=== PATIENT | male | born 1960 | race Two or more races ===

== ENCOUNTER 2018-11-19 19:54 | Emergency (ER) | payer BC, SELFPAY ==
[~2018-11-19] VITALS: Ht 182.9 cm; Wt 86.0 kg
[2018-11-19 21:46] LABS: EOSINOPHILS % 2.1 % (0.0-5.0); HEMATOCRIT. 43.9 % (42.0-52.0); HEMOGLOBIN. 14.7 g/dL (14.0-18.0); LYMPHOCYTES % 24.8 % (20.0-50.0); MEAN CORPUSCULAR HEMOGLOBIN 30.9 pg (28.0-32.0); MEAN CORPUSCULAR VOLUME 91.9 fL (80.0-94.0); MEAN PLATELET VOLUME 6.9 fl (7.4-10.4); MONOCYTES % 10.2 % (2.0-8.0); NEUTROPHILS % 61.9 % (40.0-76.0); PLATELET 254 x1000/uL (130-400); RED BLOOD CELL COUNT 4.78 mill/uL (4.7-6.1); RED CELL DISTRIBUTION WIDTH 13.4 % (11.6-14.6)
[2018-11-19 21:52] LABS: CHLORIDE 104 mEq/L (98-107)
[2018-11-19] MEDS ORDERED: SODIUM CHLORIDE 0.9% 1,000 ML IV ONE (21:55)
[2018-11-19 21:57] LABS: ETHANOL BLOOD < 10 mg/dL
[2018-11-19] MEDS ORDERED: TETANUS, DIPHTHERIA, PERTUSSIS VAC/PF 0.5ML (>7YR OLD) IM ONE (22:00)
[2018-11-19 22:14] LABS: *AMPHETAMINES SCREEN URINE NEGATIVE (NEGATIVE); *BARBITURATES SCREEN URINE NEGATIVE (NEGATIVE); *BENZODIAZEPINES SCREEN URINE NEGATIVE (NEGATIVE); *COCAINE SCREEN URINE NEGATIVE (NEGATIVE); METHADONE URINE SCREEN NEGATIVE (NEGATIVE); OPIATES URINE SCREEN PRESUMTIVE POSITIVE (NEGATIVE)
[2018-11-19 22:15] LABS: CANNABINOID URINE SCREEN NEGATIVE (NEGATIVE); PHENCYCLIDINE URINE SCREEN NEGATIVE (NEGATIVE)
[2018-11-19] MEDS ORDERED: NALOXONE HCL 0.4 MG/ML 1ML VIAL IV ONE (23:15)
[2018-11-19] MEDS ORDERED: IOHEXOL-300 100 ML BOTTLE ONE (23:43)
[2018-11-19] MEDS ORDERED: LORAZEPAM 2MG/ML CPJ IV ONE (23:45)
[2018-11-20] MEDS ORDERED: LORAZEPAM 2MG/ML CPJ IV ONE
[2018-11-20] MEDS ORDERED: ZIPRASIDONE MESYLATE 20MG/VIAL IM NR (01:00)
[2018-11-20 01:43] LABS: CLARITY URINE CLEAR (CLEAR); COLOR URINE YELLOW (YELLOW); KETONES URINE TRACE (NEGATIVE); LEUKOCYTE ESTERASE URINE NEGATIVE (NEGATIVE); NITRITE URINE NEGATIVE (NEGATIVE); OCCULT BLOOD URINE NEGATIVE (NEGATIVE); PH URINE 5.5 (4.5-8.0); PROTEIN URINE NEGATIVE (NEGATIVE); UROBILINOGEN URINE 0.2 E.U./dL (0.2-1.0)
[2018-11-20 05:00] VITALS: BP 135/81
== END 2018-11-20 05:21 | disposition left against medical advice (07) ==
LOC: ER 19:54 → EDBEDREQ 11-20 00:32 → ER 11-20 05:21 → CANRESERV 11-20 07:22 → ENRESERV 11-20 07:22 → CANBEDREQ 11-20 19:03
DX: G93.40 Encephalopathy, unspecified (principal); I25.10 Atherosclerotic heart disease of native coronary artery without angina pectoris; S20.311A Abrasion of right front wall of thorax, initial encounter; V43.52XA Car driver injured in collision with other type car in traffic accident, initial encounter; Y93.89 Activity, other specified; Y92.410 Unspecified street and highway as the place of occurrence of the external cause; Z95.5 Presence of coronary angioplasty implant and graft; Z86.73 Personal history of transient ischemic attack (TIA), and cerebral infarction without residual deficits
CPT/HCPCS: 36415; 70450; 71260; 74177; 80048; 80076; 80305; 80320; 81003; 84484; 85025; 93005; 96372; 96374; 96375; 99291; J2060; J2310; J3486; J7030; Q9967; G0480